=== PATIENT | female | born 1995 ===

== ENCOUNTER 2018-07-20 06:58 | Day surgery (SDC) | payer SELFPAY ==
[~2018-07-20] VITALS: Ht 162.6 cm; Wt 56.0 kg
--- NOTE | 2018-07-20 09:44 | NUR ---
07/20/18 0944 Bruno Lynn PATIENT INTO SDU RECLINER RESTING COMFORTABLY, VSS, PARENTS ARE CHAIRSIDE IN ROOM, NO COMPLAINTS AT THIS TIME. WILL CONTINUE TO MONITOR
== END 2018-07-20 10:30 | disposition home or self-care (01) ==
LOC: ORSCSDS 06:58 → ORSC 06:58
PROVIDERS: Otolaryngology
PROC: 0CBPXZZ Excision of Tonsils, External Approach (ICD-10-PCS; principal; 2018-07-20 08:15)
DX: J35.01 Chronic tonsillitis (principal)
CPT/HCPCS: 88304; J0330; J1100; J1885; J2250; J2405; J3010; J7120